=== PATIENT | female | born 1995 | race African-American/Black ===

== ENCOUNTER 2019-10-09 00:59 | Emergency (ER) | payer MEDICAID, SELFPAY ==
[~2019-10-09] VITALS: Ht 157.5 cm; Wt 131.5 kg
[~2019-10-09 00:59] MED LIST: ALBU-136 IH
[2019-10-09 01:11] VITALS: BP 130/95
--- NOTE | 2019-10-09 01:48 | NUR ---
PT SEEN AND EXAM BY DR RAGSDALE. JESÚS NASOPHARGEAL SWAB SENT TO LAB.
[2019-10-09 01:52] VITALS: BP 127/81
--- NOTE | 2019-10-09 01:53 | NUR ---
Patient discharged with v/s stable. Written and verbal after care instructions given and explained. Patient verbalized understanding. Ambulatory with steady gait. All questions addressed prior to discharge. Advised to follow up with PMD. prescription of Ibuprofen given to the pt . Pt walks in steady gait, no othe complains noted and pt d/c with no dizziness.
--- NOTE | 2019-10-09 21:11 | NUR ---
LATE ENTRY--POSITIVE COVID SWAB RECEIVED. RESULT GIVEN TO INFECTION [employer]OL MAILBOX.
== END 2019-10-09 01:55 | disposition home or self-care (01) ==
LOC: MED 00:59
DX: R05 Cough (principal); Z20.828 Contact with and (suspected) exposure to other viral communicable diseases; R50.9 Fever, unspecified; R43.8 Other disturbances of smell and taste; J45.909 Unspecified asthma, uncomplicated; Z79.899 Other long term (current) drug therapy; Z91.013 Allergy to seafood
CPT/HCPCS: 99283; U0003

== ENCOUNTER 2020-07-01 18:32 | Emergency (ER) | payer SELFPAY ==
[~2020-07-01] VITALS: Ht 162.6 cm; Wt 136.1 kg
[~2020-07-01 18:32] MED LIST changes: +ALBU-118 IH; -ALBU-136 IH
[2020-07-01 18:46] VITALS: BP 161/101
--- NOTE | 2020-07-01 18:51 | NUR ---
Ambulated to bed 11
--- NOTE | 2020-07-01 18:57 | NUR ---
25/F presents to ED with c/o left arm numbness and chest pain. Patient states she began experiencing intermittent left hand numbness 1 week ago that has progressively been radiating up her left arm. Patient also states she was at work today and began feeling constant 7/10 stabbing chest pain. Denies taking anything for pain, patient states sensation feels diminished in left arm, unequal hand radius grinder, weaker to the left.
--- NOTE | 2020-07-01 19:10 | NUR ---
X-Ray at bedside.
[2020-07-01 19:27] LABS: BASOPHILS % (AUTO) 0.6 % (0.0-2.0); EOSINOPHILS # (AUTO) 0.1 K/uL (0-0.4); EOSINOPHILS % (AUTO) 1.4 % (0.0-4.0); HEMATOCRIT 35.1 % (36-48); HEMOGLOBIN 11.2 g/dL (12.0-16.0); LYMPHOCYTES # (AUTO) 2.2 K/uL (2.5-16.5); LYMPHOCYTES % (AUTO) 26.6 % (20.5-51.1); MEAN CORPUSCULAR HEMOGLOBIN 24 pg (27-31); MEAN CORPUSCULAR HGB CONC 32 g/dL (33-37); MEAN CORPUSCULAR VOLUME 75.6 fL (80-94); MONOCYTES # (AUTO) 0.4 K/uL (0.8-1.0); MONOCYTES % (AUTO) 4.5 % (1.7-9.3); NEUTROPHILS # (AUTO) 5.5 K/uL (1.8-7.7); NEUTROPHILS % (AUTO) 66.9 % (42.2-75.2); PLATELET COUNT (AUTO) 263 K/uL (140-450); RED BLOOD CELL COUNT(AUTO) 4.64 MIL/uL (4.20-5.40); WHITE BLOOD COUNT (AUTO) 8.2 K/uL (4.8-10.8)
--- NOTE | 2020-07-01 19:30 | NUR ---
ARRIVED TO BEDSIDE TO SEE THE PATIENT, ALERT AND ORIENTED, TRACKING WITH THE EYES, SITTING IN THE UPRIGHT POSITION ON THE BED. PATIENT CAME TO ER WITH COMPLAINT OF CHEST PAIN AFTER COMPLETING WORK. PATIENT PAIN LEVEL 6/10, PATIENT RESTING COMFORTABLY. PATIENT CONNECTED TO CONTINUOUS CARDIAC MONITORING.INITIAL EKG COMPLETED. VS CURRENTLY STABLE, NO OBVIOUS SIGNS OF DISTRESS NOTED WHLE AT BEDSIDE. WILL CONTINUE TO CLOSELY MONITOR AND FREQUENTLY ROUND.
[2020-07-01 19:40] LABS: ALBUMIN 3.3 g/dL (3.4-5.0); ANION GAP 11.8 (8-16); CARBON DIOXIDE 26.8 mmol/L (21-32); CREATININE 0.8 mg/dL (0.6-1.3); POTASSIUM 3.6 mmol/L (3.5-5.1); TOTAL BILIRUBIN 0.4 mg/dL (0.0-1.0)
--- NOTE | 2020-07-01 20:13 | NUR ---
PATIENT CONTINUES TO REST IN A POSITION OF COMFORT, NO SIGNS OF DISTRESS NOTED WHILE AT BEDSIDE. 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 VS STABLE, WILL CONTINUE TO CLOSELY MONITOR AND FREQUENTLY ROUND.
[2020-07-01 22:03] VITALS: BP 106/61
--- NOTE | 2020-07-01 22:04 | NUR ---
Patient discharged with v/s stable. Written and verbal after care instructions given and explained. Patient alert, oriented and verbalized understanding of instructions. Ambulatory with steady gait. All questions addressed prior to discharge. ID band removed. Patient advised to follow up with PMD. No rx given per md. MD wrote a doctors note for the patient to excuse from work/school. Patient educated on indication of medication including possible reaction and side effects. Opportunity to ask questions provided and answered.
== END 2020-07-01 22:04 | disposition home or self-care (01) ==
LOC: MED 18:32
DX: R07.2 Precordial pain (principal); J45.909 Unspecified asthma, uncomplicated; Z79.899 Other long term (current) drug therapy
CPT/HCPCS: 36415; 71045; 80053; 83880; 84484; 85025; 93005; 99285

== ENCOUNTER 2020-12-21 20:18 | Emergency (ER) | payer OTHER ==
[~2020-12-21] VITALS: Ht 157.5 cm; Wt 136.1 kg
[2020-12-21 21:07] VITALS: BP 157/93
[2020-12-21] MEDS ORDERED: KETOROLAC 60 MG/2 ML VIAL IM ONE (22:55)
[2020-12-22] MEDS ORDERED: NAPR-54 PO (00:44)
[2020-12-22 01:03] VITALS: BP 134/88
== END 2020-12-22 01:03 | disposition home or self-care (01) ==
LOC: MED 20:18
DX: S13.4XXA Sprain of ligaments of cervical spine, initial encounter (principal); S33.5XXA Sprain of ligaments of lumbar spine, initial encounter; F41.9 Anxiety disorder, unspecified; J45.909 Unspecified asthma, uncomplicated; Z91.013 Allergy to seafood; V98.8XXA Other specified transport accidents, initial encounter; Y93.89 Activity, other specified; Y92.89 Other specified places as the place of occurrence of the external cause; Y99.8 Other external cause status
CPT/HCPCS: 72050; 72110; 96372; 99284; J1885

== ENCOUNTER 2021-05-19 10:32 | Emergency (ER) | payer OTHER ==
[~2021-05-19] VITALS: Ht 157.5 cm; Wt 144.4 kg
[~2021-05-19 10:32] MED LIST changes: +NAPR-54 PO
[2021-05-19 10:50] VITALS: BP 154/99
--- NOTE | 2021-05-19 10:55 | NUR ---
[facility]: RIGHT EYE 20/40, LEFT EYE 20/30, BOTH EYE 20/30
--- NOTE | 2021-05-19 10:56 | NUR ---
PT AMB TO BED 2.
[2021-05-19 11:10] VITALS: BP 154/99
--- NOTE | 2021-05-19 11:10 | NUR ---
First contact w/ pt. Pt has cc of SUÁREZ for the past 3 weeks pt states " my headaches have been getting worst so I decided to come in to the ER". Pt currently sitting in [facility] and endorses blurry vision on the right eye. Pt is AxO x4, GCS 15, speech is clear, eyes are equal , round, and reactive to light. Awaiting further orders.
[2021-05-19] MEDS ORDERED: ACETAMINOPHEN 325 MG TAB PO ONE (11:25)
[2021-05-19] MEDS ORDERED: METOCLOPRAMIDE 10 MG TAB PO ONE (11:25)
[2021-05-19] MEDS ORDERED: KETOROLAC 60 MG/2 ML VIAL IM ONE (11:25)
[2021-05-19] MEDS ORDERED: IBUP-2213 PO (12:30)
[2021-05-19] MEDS ORDERED: METO-486 PO (12:30)
[2021-05-19] MEDS ORDERED: ACET-10509 PO (12:30)
--- NOTE | 2021-05-19 12:54 | NUR ---
Patient discharged with v/s stable. Written and verbal after care instructions given FOR GENERAL HEADACHE WITHOUT A CAUSE and explained. Patient alert, oriented and verbalized understanding of instructions. Ambulatory with steady gait. All questions addressed prior to discharge. ID band removed. Patient advised to follow up with PMD. Rx of TYNENOL, IBUPROFEN, REGLAN given. Patient educated on indication of medication including possible reaction and side effects. Opportunity to ask questions provided and answered.
== END 2021-05-19 12:54 | disposition home or self-care (01) ==
LOC: MED 10:32
DX: R51.9 Headache, unspecified (principal); H53.9 Unspecified visual disturbance; J45.909 Unspecified asthma, uncomplicated
CPT/HCPCS: 70450; 96372; 99284; J1885; J8597

== ENCOUNTER 2023-04-04 19:10 | Emergency (ER) | payer OTHER ==
[~2023-04-04] VITALS: Ht 160 cm; Wt 145.1 kg
[~2023-04-04 19:10] MED LIST changes: +ACET-10509 PO; +IBUP-2213 PO; +METO-486 PO
[2023-04-04 19:47] VITALS: BP 160/118; PULSE 97; RESP 16; TEMP 97.9; O2SAT 98
[2023-04-04] MEDS ORDERED: ACET-10509 PO (20:08)
[2023-04-04] MEDS ORDERED: PRON INH (20:08)
[2023-04-04] MEDS ORDERED: IBUP-2230 PO (20:08)
[2023-04-04] MEDS ORDERED: AMOX875T3 PO (20:08)
[2023-04-04 20:36] LABS: FLU A ANTIGEN negative (NEGATIVE); FLU B ANTIGEN NEGATIVE (NEGATIVE)
== END 2023-04-04 20:23 | disposition home or self-care (01) ==
LOC: MED 19:10
DX: H66.91 Otitis media, unspecified, right ear (principal); Z20.822 Contact with and (suspected) exposure to COVID-19; J06.9 Acute upper respiratory infection, unspecified; J45.909 Unspecified asthma, uncomplicated; Z79.899 Other long term (current) drug therapy; Z91.013 Allergy to seafood
CPT/HCPCS: 99283